=== PATIENT | male | born 1955 | race Caucasian/White ===

== ENCOUNTER 2016-10-11 22:52 | Emergency (ER) | payer OTHER ==
[~2016-10-11] VITALS: Ht 182.9 cm; Wt 85.7 kg
[2016-10-11] MEDS ORDERED: MORPHINE SULFATE 4 MG/ML SYRG IV ONE (23:00)
[2016-10-11] MEDS ORDERED: ONDANSETRON HCL 4 MG/2 ML VIAL IV ONE (23:00)
[2016-10-11] MEDS ORDERED: LORazepam 0.5 MG TAB PO ONE (23:00)
[2016-10-11] MEDS ORDERED: NITROGLYCERIN 0.2MG/HR TOPICAL PATCH TD ONE (23:00)
[2016-10-11] MEDS ORDERED: CLOPIDOGREL BISULFATE 75 MG TAB PO ONE (23:00)
[2016-10-11 23:20] LABS: Basophils # (auto) 0.1 uL; Basophils % (auto) 1.6 % (0.0-2.0); Eosinophils # (auto) 0.1 uL; Eosinophils % (auto) 0.9 % (0.0-7.0); Hematocrit 48.8 % (41.0-53.0); Hemoglobin 16.3 g/dL (13.5-17.5); Lymphocytes # (auto) 3.8 uL; Lymphocytes % (auto) 41.7 % (10.0-50.0); Mean Corpuscular Hemoglobin 29.4 pg (28.0-32.0); Mean Corpuscular Hgb Conc. 33.4 g/dL (32.0-36.0); Mean Corpuscular Volume 87.9 fL (80.0-100.0); Mean Platelet Volume 7.6 fL (7.4-10.4); Monocytes # (auto) 0.9 uL; Monocytes % (auto) 10.3 % (0.0-12.0); Neutrophils # (auto) 4.2 uL; Neutrophils % (auto) 45.5 % (37.0-80.0); Platelet Count (auto) 244 10^3/uL (140-450); White Blood Cell 9.1 10^3/uL (4.4-10.8)
[2016-10-11 23:31] LABS: INR 0.94 (0.9-1.15); Partial Thromboplastin Time 26.7 sec (22.64-33.71); Prothrombin Time 10.2 sec (9.37-12.3)
[2016-10-11 23:32] LABS: Albumin 3.6 g/dL (3.4-5.0); BUN/Creatinine Ratio 13.9; Calcium 8.3 mg/dL (8.5-10.1); Magnesium 2.1 mg/dL (1.6-2.6); Potassium 3.4 mmol/L (3.5-5.1)
[2016-10-11 23:41] LABS: B-Type Natriuretic Peptide 12.53 pg/mL (0-100)
[2016-10-11 23:51] LABS: Bilirubin, Total 0.5 mg/dL (0.2-1.0); Total Protein 7.1 g/dL (6.4-8.2)
[2016-10-11 23:55] LABS: Temperature: 23.7 C (20.0-25.0)
[2016-10-12] MEDS ORDERED: DEXTROSE (50%) 50ML SYRG IV PRN (03:45)
[2016-10-12] MEDS ORDERED: ENOXAPARIN SOD 100 MG/1 ML SYRINGE SC SCH (03:45)
[2016-10-12] MEDS ORDERED: ONDANSETRON HCL 4 MG/2 ML VIAL IV PRN (03:45)
[2016-10-12] MEDS ORDERED: NITROGLYCERIN 0.4 MG SL TAB SL PRN (03:45)
[2016-10-12] MEDS ORDERED: POTASSIUM CHL 20MEQ/100ML 100 ML IV ONE (03:45)
[2016-10-12] MEDS ORDERED: MORPHINE SULF INJ 2 MG/ML SYRINGE 1ML IV PRN (03:45)
[2016-10-12] MEDS ORDERED: SODIUM CHLORIDE 0.9% 1,000 ML IV SCH (03:45)
[2016-10-12] MEDS ORDERED: InsuLIN REG 1unit/0.01ml Soln (100units/ml) SC SCH (06:00)
[2016-10-12] MEDS ORDERED: ACCU-CHEK COMFORT CURVE STRIP VI SCH (06:00)
[2016-10-12 08:15] VITALS: BP 134/76
[2016-10-12] MEDS ORDERED: ASPirin-EC 325mg tab PO SCH (10:00)
[2016-10-12] MEDS ORDERED: METOPROLOL TARTRATE 25 MG TAB PO SCH (10:00)
== END 2016-10-12 08:29 | disposition short-term general hospital (02) ==
LOC: ER 22:52 → EDBD 22:52 → ER 10-12 08:29
DX: I24.9 Acute ischemic heart disease, unspecified (principal); Z88.6 Allergy status to analgesic agent; E11.9 Type 2 diabetes mellitus without complications; K21.9 Gastro-esophageal reflux disease without esophagitis
CPT/HCPCS: 36415; 71010; 80053; 82962; 83735; 83880; 84443; 84484; 85025; 85610; 85730; 93005; 96361; 96372; 96374; 96375; 99291; J1650; J1815; J2270; J2405; J3480; J7030